=== PATIENT | male | born 1955 | race Caucasian/White ===

== ENCOUNTER 2016-11-22 20:44 | Inpatient (IN) | payer OTHER ==
[~2016-11-22] VITALS: Ht 175.3 cm; Wt 73.9 kg
--- NOTE | 2016-11-22 21:43 | Emergency Room Report ---
History of Present Illness General Chief Complaint: Syncope Source: Patient, Significant Other Present Illness HPI Patient presents with syncope. He was drinking some alcohol also smokes marijuana. He said this happened to him before. This time however paramedics with hypotension. They gave him 500 mils of saline in the field and he was still hypotensive. The patient denies chest pain, palpitations, melena, vomiting, fever, cough, shortness of breath. He does suffer from chronic low back pain. This has not changed recently. He takes valium, norco, baclofen, mobic for chronic back pain. Allergies: Coded Allergies: Cashew (Unverified Allergy, Unknown, Itching, 11/23/16) EVONNE (Unverified Allergy, Unknown, Itching, 11/23/16) Pistachio (Verified Allergy, Unknown, Itching, 11/23/16) Patient History Past Medical History: see triage record Social History: Reports: alcohol use, drug use Social History Narrative Reviewed Nursing Documentation: PMH: Agreed, PSxH: Agreed Nursing Documentation-PMH Hx Hypertension: Yes - BORDERLINE Hx Neurological Problems: Yes - DISC DEGENERATION Review of Systems All Other Systems: negative except mentioned in HPI Physical Exam Vital Signs Date Time Temp Pulse Resp B/P (MAP) Pulse Ox O2 Delivery O2 Flow Rate FiO2 11/22/16 20:48 98.1 62 16 89/56 93 Room Air Sp02 EP Interpretation: reviewed, abnormal - interpreted as low by me General Appearance: well appearing, no apparent distress, GCS 15 Head: normocephalic Eyes: bilateral eye PERRL, bilateral eye Scleral Injection ENT: dry mucus membranes - slightly Neck: supple Respiratory: lungs clear, normal breath sounds Cardiovascular #1: regular rate, rhythm Cardiovascular #2: 2+ radial (R) Gastrointestinal: normal inspection, normal bowel sounds, non tender, no mass, non-distended Musculoskeletal: back normal, gait/station normal, normal range of motion Neurologic: alert, oriented x3, motor strength/tone normal, DTRs symmetric, SLR negative, cerebellar normal, speech normal Psychiatric: depressed affect, other - some denial of problem Skin: normal inspection, warm/dry, pallor - improved with better BP Medical Decision Making Diagnostic Impression: Primary Impression: Syncope Qualified Codes: R55 - Syncope and collapse Additional Impression: Hypotension (arterial) Qualified Codes: I95.9 - Hypotension, unspecified ER Course Presents with syncope and persistent hypotension. It after getting 500 mils of fluid in the field patient remained hypotensive. Differential includes acute myocardial infarction, dehydration, vasovagal, occult infection, medication excess amongst others. Emergent evaluation EKG, chest x-ray and labs is undertaken. The patient will receive IV hydration here. EKG without acute injury (terry). CXR clear. Labs with neg troponin and normal h/h. Min elevated creat. EKG is remarkable for bradycardia. BP was better then dropped again. Recheck labs and more fluids. Repeat H/H stable. Repeat troponin still neg. Consider medication reaction and possible pump dysfunction (possibly valvular), dehydration. Admit tele Dr. Romero. Laboratory Tests Test 11/22/16 21:30 11/22/16 22:50 11/23/16 00:10 White Blood Count 5.9 K/UL (4.8-10.8) 5.3 K/UL (4.8-10.8) Red Blood Count 4.52 M/UL (4.70-6.10) L 4.29 M/UL (4.70-6.10) L Hemoglobin 15.3 G/DL (14.2-18.0) 14.6 G/DL (14.2-18.0) Hematocrit 43.1 % (42.0-52.0) 41.5 % (42.0-52.0) L Mean Corpuscular Volume 95 FL (80-99) 97 FL (80-99) Mean Corpuscular Hemoglobin 33.8 PG (27.0-31.0) H 34.1 PG (27.0-31.0) H Mean Corpuscular Hemoglobin Concent 35.4 G/DL (32.0-36.0) 35.2 G/DL (32.0-36.0) Red Cell Distribution Width 10.7 % (11.6-14.8) L 10.9 % (11.6-14.8) L Platelet Count 237 K/UL (150-450) 238 K/UL (150-450) Mean Platelet Volume 7.3 FL (6.5-10.1) 7.6 FL (6.5-10.1) Neutrophils (%) (Auto) 58.0 % (45.0-75.0) 63.1 % (45.0-75.0) Lymphocytes (%) (Auto) 31.3 % (20.0-45.0) 27.4 % (20.0-45.0) Monocytes (%) (Auto) 7.7 % (1.0-10.0) 7.1 % (1.0-10.0) Eosinophils (%) (Auto) 2.3 % (0.0-3.0) 1.7 % (0.0-3.0) Basophils (%) (Auto) 0.6 % (0.0-2.0) 0.7 % (0.0-2.0) Prothrombin Time 9.7 SEC (9.30-11.50) Prothrombin Time INR 0.9 (0.9-1.1) PTT 20 SEC (23-33) L Sodium Level 139 mEQ/L (135-145) Potassium Level 4.4 mEQ/L (3.4-4.9) Chloride Level 100 mEQ/L (98-107) Carbon Dioxide Level 29 mEQ/L (20-30) Anion Gap 10 (5-15) Blood Urea Nitrogen 16 mg/dL (7-23) Creatinine 1.2 mg/dL (0.7-1.2) Estimate Glomerular Filtration Rate > 60 mL/min (>60) Glucose Level 99 mg/dL (74-106) Calcium Level 8.6 mg/dL (8.6-10.2) Total Bilirubin 0.7 mg/dL (0.0-1.2) Aspartate Amino Transferase (AST) 17 U/L (5-40) Alanine Aminotransferase (ALT) 20 U/L (3-41) Alkaline Phosphatase 53 U/L (40-129) Total Creatine Kinase 29 U/L (38-174) L Troponin I < 0.30 ng/mL (<=0.30) < 0.30 ng/mL (<=0.30) Pro-B-Type Natriuretic Peptide 20 pg/mL (0-125) Total Protein 6.1 g/dL (6.6-8.7) L Albumin 3.9 g/dL (3.5-5.2) Globulin 2.2 g/dL Albumin/Globulin Ratio 1.7 (1.0-2.7) Urine Color Yellow Urine Appearance Clear Urine pH 5 (4.5-8.0) Urine Specific [place] 1.020 (1.005-1.035) Urine Protein 2+ (NEGATIVE) H Urine Glucose (UA) Negative (NEGATIVE) Urine Ketones Negative (NEGATIVE) Urine Occult Blood Negative (NEGATIVE) Urine Nitrite Negative (NEGATIVE) Urine Bilirubin Negative (NEGATIVE) Urine Urobilinogen Normal MG/DL (0.0-1.0) Urine Leukocyte Esterase 1+ (NEGATIVE) H Urine RBC 0-2 /HPF (0 - 0) H Urine WBC 0-2 /HPF (0 - 0) Urine Squamous Epithelial Cells Few /LPF (NONE/OCC) Urine Bacteria Few /HPF (NONE) Urine Opiates Screen Positive (NEGATIVE) H Urine Barbiturates Screen Negative (NEGATIVE) Phencyclidine (PCP) Screen Negative (NEGATIVE) Urine Amphetamines Screen Negative (NEGATIVE) Urine Benzodiazepines Screen Positive (NEGATIVE) H Urine Cocaine Screen Negative (NEGATIVE) Urine Marijuana (THC) Screen Positive (NEGATIVE) H EKG Diagnostic Results Rate: bradycardiac ST Segments: no acute changes Rhythm Strip Diag. Results EP Interpretation: yes Rhythm: no PVC's, no ectopy, other - Bradycardia Chest X-Ray Diagnostic Results Chest X-Ray Diagnostic Results : Chest X-Ray Ordered: Yes # of Views/Limited/Complete: 1 View Indication: Other EP Interpretation: Yes Interpretation: no consolidation, no effusion, no pneumothorax, no acute cardiopulmonary disease Impression: No acute disease Electronically Signed by: signed Mark Winchester MD Last Vital Signs Date Time Temp Pulse Resp B/P (MAP) Pulse Ox O2 Delivery O2 Flow Rate FiO2 11/23/16 12:38 98.1 71 20 148/87 100 Room Air Status: improved Disposition: ADMITTED INPATIENT Condition: Serious Mark Winchester M.D. Nov 22, 2016 21:43
[2016-11-22 22:10] LABS: BASOPHILS % (AUTO) 0.6 % (0.0-2.0); EOSINOPHILS % (AUTO) 2.3 % (0.0-3.0); LYMPHOCYTES % (AUTO) 31.3 % (20.0-45.0); MEAN CORPUSCULAR HEMOGLOBIN 33.8 PG (27.0-31.0); MEAN CORPUSCULAR HGB CONC 35.4 G/DL (32.0-36.0); MEAN CORPUSCULAR VOLUME 95 FL (80-99); MEAN PLATELET VOLUME 7.3 FL (6.5-10.1); MONOCYTES % (AUTO) 7.7 % (1.0-10.0); PLATELET COUNT 237 K/UL (150-450); RED BLOOD COUNT 4.52 M/UL (4.70-6.10); RED CELL DISTRIBUTION WIDTH 10.7 % (11.6-14.8); WHITE BLOOD COUNT 5.9 K/UL (4.8-10.8)
[2016-11-22 22:20] LABS: INR 0.9 (0.9-1.1); PROTHROMBIN TIME 9.7 SEC (9.30-11.50)
[2016-11-22 22:24] LABS: TROPONIN I < 0.30 ng/mL (<=0.30)
[2016-11-22 22:27] LABS: ALANINE AMINOTRANSFERASE 20 U/L (3-41); ALBUMIN/GLOBULIN RATIO 1.7 (1.0-2.7); ANION GAP 10 (5-15); ASPARTATE AMINO TRANSFERASE 17 U/L (5-40); CALCIUM 8.6 mg/dL (8.6-10.2); CARBON DIOXIDE 29 mEQ/L (20-30); CHLORIDE 100 mEQ/L (98-107); CREATININE 1.2 mg/dL (0.7-1.2); GLOMERULAR FILTRATION RATE > 60 mL/min (>60); HEMOLYSIS 8; POTASSIUM 4.4 mEQ/L (3.4-4.9); SODIUM 139 mEQ/L (135-145); TOTAL PROTEIN 6.1 g/dL (6.6-8.7)
[2016-11-22 23:00] VITALS: BP 111/53
[2016-11-23] VITALS (7 sets, daily range): BP systolic 98–148; BP diastolic 55–101
[2016-11-23] MEDS ORDERED: Ketorolac 30mg Inj IV ONE (00:15)
[2016-11-23 00:42] LABS: APPEARANCE,URINE CLEAR; KETONES,URINE NEGATIVE (NEGATIVE); LEUKOCYTE ESTERASE ,URINE 1+ (NEGATIVE); NITRITE,URINE NEGATIVE (NEGATIVE); PH,URINE 5 (4.5-8.0); PROTEIN,URINE 2+ (NEGATIVE); UROBILINOGEN,URINE NORMAL MG/DL (0.0-1.0)
[2016-11-23 00:43] LABS: BASOPHILS % (AUTO) 0.7 % (0.0-2.0); EOSINOPHILS % (AUTO) 1.7 % (0.0-3.0); LYMPHOCYTES % (AUTO) 27.4 % (20.0-45.0); MEAN CORPUSCULAR HEMOGLOBIN 34.1 PG (27.0-31.0); MEAN CORPUSCULAR HGB CONC 35.2 G/DL (32.0-36.0); MEAN CORPUSCULAR VOLUME 97 FL (80-99); MEAN PLATELET VOLUME 7.6 FL (6.5-10.1); MONOCYTES % (AUTO) 7.1 % (1.0-10.0); NEUTROPHILS % (AUTO) 63.1 % (45.0-75.0); PLATELET COUNT 238 K/UL (150-450); RED BLOOD COUNT 4.29 M/UL (4.70-6.10); RED CELL DISTRIBUTION WIDTH 10.9 % (11.6-14.8); WHITE BLOOD COUNT 5.3 K/UL (4.8-10.8)
[2016-11-23 00:55] LABS: BACTERIA,URINE FEW /HPF; RBC,URINE 0-2 /HPF (0 - 0); SQUAMOUS EPITHELIAL CELL,UR FEW /LPF (NONE/OCC); WBC,URINE 0-2 /HPF (0 - 0)
[2016-11-23 01:14] LABS: TROPONIN I < 0.30 ng/mL (<=0.30)
[2016-11-23] MEDS ORDERED: Tubing IV Cassette IV ONE (01:14)
[2016-11-23] MEDS ORDERED: VALIUM5 MG ORAL (03:16)
[2016-11-23] MEDS ORDERED: NORCO 5-325 TA1 EAC1 ORAL (03:16)
[2016-11-23] MEDS ORDERED: MOBIC15 MG ORAL (03:16)
[2016-11-23] MEDS ORDERED: BACLOFEN10 MG ORAL (03:16)
[2016-11-23] MEDS ORDERED: PAXIL20 MG ORAL (03:16)
[2016-11-23] MEDS ORDERED: Heparin 5000 units/ml inj SUBQ SCH (09:00)
--- NOTE | 2016-11-23 11:15 | Diagnostic Imaging Report ---
Indication: Dyspnea Comparison: None A single view chest radiograph was obtained. Findings: Cardiomediastinal appearance is within normal limits for age. Pulmonary vascularity is appropriate. The diaphragmatic contour is smooth and costophrenic angles are sharp. No pleural effusions are identified. The bones are unremarkable. Impression: No acute findings
--- NOTE | 2016-11-23 15:42 | History & Physical ---
History and Physical History & Physicial dict syncope and low BP due to polydrug abuse dc home NO alcohol or MJ CORINE SINGH Nov 23, 2016 15:42
--- NOTE | 2016-11-23 21:46 | History and Physical Report ---
DATE OF ADMISSION: 11/22/2016 Chief Complaint: The patient is a 61-year-old man, who came to the hospital by paramedics because of syncope and hypotension. History Of Present Illness: The patient is at home and presently not employed. He was sitting in his living room and got up to go to the kitchen. reports that he had a blank stare and sat down at the dinner table and became unresponsive. Paramedics were called and found him to have blood pressure below 90. Fluids were given and he came to the emergency department here, additional fluids were given and admission was arranged. The patient reports that he does not recall what happened. He does not have any chest pain or shortness of breath. He has no fever, chills, or sweats. He has no abdominal pain, nausea, or vomiting. He has occasional diarrhea. He has chronic back pain and takes multiple medications. The patient reports that he has been taking [place] four times a day as well as Valium, baclofen, Mobic, and was using marijuana prior to admission. In addition, he had three alcoholic drinks before this event. PAST MEDICAL HISTORY: Borderline hypertension and chronic back pain. Past Surgical History: Right shoulder multiple times and tonsillectomy. Social History: He does not smoke. He is and lives with his , who is at the bedside. REVIEW OF SYSTEMS: Otherwise unremarkable. PHYSICAL EXAMINATION: GENERAL: The patient is alert and responds appropriately. Vital Signs: The blood pressure is now slightly elevated 148/87 and has been consistently in the 130s today following admission. Other vital signs are normal. He appears somewhat overweight. There is no fever. HEENT: The head is normocephalic. Mouth, he has moist mucous membranes. NECK: No jugular venous distention. CHEST: Clear. CARDIAC: Rhythm is regular. ABDOMEN: Soft and nontender. Liver and spleen are not enlarged. EXTREMITIES: No clubbing, cyanosis, or edema. Laboratory And Diagnostic Data: Chest x-ray showed no abnormalities. EKG showed some sinus bradycardia transiently. Now, the heart rate is normal. Laboratory studies show hemoglobin, white count, and platelet count are normal. Chemistry is normal. Troponins are negative. Coagulation is normal. Urinalysis is normal. Toxicology is positive for opiates, benzodiazepines, and marijuana. No alcohol level was obtained. IMPRESSION: 1. Syncope with hypotension. 2. Polydrug abuse. 3. Chronic back pain. Plan: I have advised the patient that I believe that the polydrug abuse was the cause of his hypotension and syncope. He has now recovered and will be going home this evening. I advised him that as long as he is taking narcotics and sedatives that he cannot use alcohol and advised against marijuana use as well. He will follow up with his primary physician. I advised of the serious nature of the polydrug abuse and the need to avoid further abuse such as this, given the risk of morbidity and mortality. Jt Romero M.D. DR: BELKIS JOB#: [id number] CC:
--- NOTE | 2016-11-24 06:28 | Discharge Summary ---
Discharge Summary Hospital Course Date of Admission Nov 22, 2016 at 23:14 Date of Discharge Nov 23, 2016 at 16:13 Admitting Diagnosis syncope/hypotension HPI Mark Richardson is a 61 year old male who was admitted on Nov 22, 2016 at 23:14 for Syncope/Hypotension Hospital Course [id number] Discharge Discharge Disposition Patient was discharged to home Discharge Diagnoses: Veronika Centeno NP Nov 24, 2016 06:28
--- NOTE | 2016-11-25 04:15 | Discharge Summary 2 SIG ---
DATE OF ADMISSION: 11/22/2016 DATE OF DISCHARGE: 11/23/2016 Brief Hospital Course: The patient is a 61-year-old male, who came to the hospital by paramedics due to syncope and hypotension. The patient was at home and got up to go to the kitchen and reported that the patient had a blank stare and became unresponsive. Paramedics were called and was found to have low blood pressure. He was given fluids prior to coming to ED. He does not have any recollection of what happened. Denies any chest pain or shortness of breath. He was given IV hydration at ED. EKG was without any acute injury. Chest x-ray was unremarkable. EKG however did show bradycardia. He was then admitted to telemetry for further evaluation. He reported taking [place] four times a day as well as Valium, baclofen, Mobic and was using marijuana prior to admission. In addition, he had three alcoholic drinks before the event. Urine toxicology was positive for opiates, benzodiazepine, and marijuana. He underwent physical therapy. The patient was eventually discharged home. Advised no alcohol or marijuana use. FINAL DIAGNOSES: 1. Syncope with hypotension. 2. Polydrug abuse. 3. Chronic back pain. DISPOSITION: The patient was discharged home. DISCHARGE MEDICATIONS: Refer to medication list. FOLLOWUP: The patient was advised to follow up with PMD in a week. Jt Romero M.D. I have been assigned to dictate discharge summary on this account and I was not involved in the patient's management. Veronika Centeno N.P. DR: KAYLYN JOB#: [id number] CC: BRADY
--- NOTE | 2016-11-26 16:02 | Cardiology Report ---
APPROVED REPORT EKG Measurement Heart [id number] Sinus bradycardia Otherwise normal ECG
== END 2016-11-23 16:13 | disposition home or self-care (01) | DRG 312 ==
LOC: EDBD 20:44 → EMR 21:05 → 2E 23:14 → EDBEDREQ 11-23 01:53
DX: R55 Syncope and collapse (principal); I95.9 Hypotension, unspecified; F12.120 Cannabis abuse with intoxication, uncomplicated; F10.10 Alcohol abuse, uncomplicated; G89.29 Other chronic pain
CPT/HCPCS: 36415; 71010; 80053; 80300; 81003; 82550; 83880; 84484; 85025; 85610; 85730; 93005; 99285